=== PATIENT | female | born 1980 | race Caucasian/White ===

== ENCOUNTER 2016-11-18 09:32 | Emergency (ER) | payer OTHER, MEDICAID ==
[2016-11-18] MEDS ORDERED: IBUPROFEN 400 MG TABLET PO STA (10:23)
[2016-11-18] MEDS ORDERED: IBUPROFEN 400 MG TABLET PO ONE (10:28)
== END 2016-11-18 12:20 | disposition home or self-care (01) ==
DX: S63.501A Unspecified sprain of right wrist, initial encounter (principal); X50.0XXA Overexertion from strenuous movement or load, initial encounter; Y93.H2 Activity, gardening and landscaping; Y92.89 Other specified places as the place of occurrence of the external cause; Y99.0 Civilian activity done for income or pay
CPT/HCPCS: 1040M; 73110; 99282; 99283; A9270